=== PATIENT | female | born 1960 | race Caucasian/White ===

== ENCOUNTER 2020-01-10 00:27 | Day surgery (SDC) | payer OTHER, SELFPAY ==
[2020-01-04 14:14] VITALS: BMI 27.2
--- NOTE | 2020-01-09 17:37 | WPDANESEPP ---
Anes - Eval Pre Procedure Procedure: Operation Date: 01/10/20 07:30 Proposed Procedures p Screening Colonoscopy - Néstor King MD Date/Time: 01/09/20 17:37 Pre Op Diagnosis: Neoplasm screening Patient Data Age: 59 Gender: F Height: 1.63 m Weight: 72 kg Allergies Allergy/AdvReac Type Severity Reaction Status Date / Time BUPROPION HCL Allergy Mild Anxiety Uncoded 01/04/20 14:03 PROCAINE HCL Allergy Mild Unknown Uncoded 01/04/20 14:03 Home Medications Medication Instructions Recorded Confirmed Type atorvastatin 20 mg PO DAILY 01/04/20 01/04/20 History conjugated estrogens [Premarin] 1 applic TOPICAL DAILY 01/04/20 01/04/20 History lorazepam 1 mg PO TID PRN 01/04/20 01/04/20 History tramadol 50 mg PO DAILY 01/04/20 01/04/20 History varenicline [Chantix] 1 mg PO BID 01/04/20 01/04/20 History Patient hx anesthesia problems: post op nausea/vomiting Family hx anesthesia problems: none PMFSH Past Medical History Medical History (Updated 01/09/20 @ 17:40 by Flaquita Holt CRNA) Abnormal breast biopsy Arthritis GERD (gastroesophageal reflux disease) HLD (hyperlipidemia) Hypoglycemia Migraine Osteopenia Overweight Hriwx-Awkbdewtf-Xizas (WPW) syndrome Surgical History Surgical History (Updated 01/09/20 @ 17:40 by Flaquita Holt CRNA) H/O cardiac radiofrequency ablation H/O laparoscopy H/O tubal ligation Previous section Status post cystoscopy Exam Day of Procedure 01/09/20 17:37
[2020-01-10 06:35] VITALS: BP 129/79; PULSE 113; RESP 18; TEMP 36.5; O2SAT 98; BMI 26.5
--- NOTE | 2020-01-10 06:46 | WPDANESEFPP ---
Anes - Eval Final PreProcedure Day of Procedure 01/10/20 06:46 Patient weight: overweight Heart: regular rate and rhythm Lungs: clear to auscultation Airway: Mallampati scale class II Neurological: alert and oriented Last oral intake: >/= 8 hours ASA classification: III Emergent: no Anesthetic plan: proceed Anesthesia type and monitoring: general GIVS and standard monitoring Informed Consent: The patient's anesthetic plan and its attendant risks and benefits were discussed with the patient/family/POA. Questions were solicited and answers provided to the satisfaction of the patient/family/POA.
[2020-01-10] MEDS: LACTATED RINGERS 1,000 ML 150 ML IV CONT (06:50)
--- NOTE | 2020-01-10 07:04 | PM.HPGS ---
History of Present Illness History of Present Illness Consent: Risks, benefits, and alternatives have been discussed and questions answered. Patient agrees to proceed with procedure. Chief complaint: Neoplasm screening Narrative: Gaby Caldwell is a 59 year old female history of polyps [facility] Past Medical History Medical History Abnormal breast biopsy Arthritis GERD (gastroesophageal reflux disease) HLD (hyperlipidemia) Hypoglycemia Migraine Osteopenia Overweight Hbbvt-Moualcbke-Amxic (WPW) syndrome Surgical History Surgical History H/O cardiac radiofrequency ablation H/O laparoscopy H/O tubal ligation Previous section Status post cystoscopy Meds Home Medications and Allergies Home Medications Medication Instructions Recorded Confirmed Type atorvastatin 20 mg PO DAILY 01/04/20 01/10/20 History conjugated estrogens [Premarin] 1 applic TOPICAL DAILY 01/04/20 01/10/20 History lorazepam 1 mg PO TID PRN 01/04/20 01/10/20 History tramadol 50 mg PO DAILY 01/04/20 01/10/20 History varenicline [Chantix] 1 mg PO BID 01/04/20 01/10/20 History Allergies Allergy/AdvReac Type Severity Reaction Status Date / Time BUPROPION HCL Allergy Mild Anxiety Uncoded 01/10/20 06:34 PROCAINE HCL Allergy Mild Unknown Uncoded 01/10/20 06:34 Vital Signs Vital Signs - 24 hr 01/10/20 06:35 Temperature 36.5 C Pulse Rate 113 H Respiratory Rate 18 Blood Pressure 129/79 Pulse Oximetry 98 Exam Resp: Auscultation: clear to auscultation bilaterally Cardio: Rate: regular rate Rhythm: regular rhythm GI: GI Palp: Yes Soft to palpation and No Tenderness to palpation present (GI) Assessment and Plan Assessment and plan (1) Personal history of colonic polyps: Code(s): Z86.010 - Personal history of colonic polyps Status: Acute Assessment and Plan: Colonoscopy with possible biopsy or polypectomy or cautery or injection of substances.
[2020-01-10 07:47] VITALS: BP 112/68; PULSE 87; RESP 16; O2SAT 97
[2020-01-10 07:57] VITALS: BP 117/74; PULSE 83; RESP 17; O2SAT 97
[2020-01-10 08:09] VITALS: BP 136/89; PULSE 86; RESP 17; O2SAT 99
== END 2020-01-10 08:18 | disposition home or self-care (01) ==
PROVIDERS: PCP Family Medicine; Visit Provider Internal Medicine Gastroenterology
PROC: 0DJD8ZZ Inspection of Lower Intestinal Tract, Via Natural or Artificial Opening Endoscopic (ICD-10-PCS; CPT 45378; principal; 2020-01-10 07:30)
DX: Z12.11 Encounter for screening for malignant neoplasm of colon (principal); K62.1 Rectal polyp; K57.30 Diverticulosis of large intestine without perforation or abscess without bleeding; E78.5 Hyperlipidemia, unspecified; K21.9 Gastro-esophageal reflux disease without esophagitis; I45.6 Pre-excitation syndrome; M85.80 Other specified disorders of bone density and structure, unspecified site; M19.90 Unspecified osteoarthritis, unspecified site
CPT/HCPCS: 45380; 88305; J2704; J7120

== ENCOUNTER 2022-01-23 15:39 | Emergency (ER) | payer OTHER, SELFPAY ==
[2022-01-23] VITALS (9 sets, daily range): BP systolic 126–160; BP diastolic 84–89; PULSE 79–106; RESP 16–25; TEMP 36.8; O2SAT 97–99
--- NOTE | ~2022-01-23 | XR_ITS ---
EXAMINATION: XR chest 2V DATE: 01/23/2022 15:55 INDICATION: Chest pressure TECHNIQUE: PA and lateral views of the chest are obtained. COMPARISON: 06/07/2013 FINDINGS: The lungs are free of acute opacities. There is no pleural effusion or pneumothorax. The ca rdiomediastinal silhouette is normal. Small sternal suture wires are consistent with pediatric cardia c surgery. There is mild thoracic spondylosis. There is plate and screw fixation of a left proximal humerus fracture. IMPRESSION: 1. No acute cardiopulmonary abnormality. Reviewed, dictated and finalized at location [facility]
--- NOTE | 2022-01-23 15:45 | ECG_ITS ---
Measurements Intervals [place] Rate: 95 P: 64 SD: 130 QRS: 51 QRSD: 79 T: 71 QT: 333 QTc: 420 Interpretive Statements SINUS RHYTHM POSSIBLE LEFT ATRIAL ENLARGEMENT BORDERLINE ST-T WAVE ABNORMALITY- DIFFUSE LEADS BORDERLINE ECG Electronically Signed On 01-23-2022 15:58:50 [employer] by Faisal Martinez D.O.
--- NOTE | 2022-01-23 16:33 | ED.CHESTPAIN ---
HPI - Chest Pain General Chief Complaint: Chest Pain Stated Complaint: rapid heart rate, chest pressure Time Seen by Provider: 01/23/22 16:17 History of Present Illness HPI narrative: 61-year-old female with history of WPW and ablation status post 20 years ago reports to the emergency room with complaints of intermittent palpitations for the past 3 weeks. 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 Patient presents to the ER hoping to capture the suspected arrhythmia. Patient states when she has the palpitations they last anywhere from a couple seconds to several minutes. Palpitations can happen at rest or with activity. Denies syncope, chest pain, shortness of breath, nausea vomiting. Related Data Home Medications Medication Instructions Recorded Confirmed Chantix 1 mg PO BID 01/04/20 01/10/20 Premarin 1 applic TOPICAL DAILY 01/04/20 01/10/20 atorvastatin 20 mg PO DAILY 01/04/20 01/10/20 lorazepam 1 mg PO TID PRN 01/04/20 01/10/20 tramadol 50 mg PO DAILY 01/04/20 01/10/20 Allergies Allergy/AdvReac Type Severity Reaction Status Date / Time procaine Allergy Unknown Swelling Verified 01/23/22 16:12 BUPROPION HCL Allergy Mild Anxiety Uncoded 01/23/22 16:12 PROCAINE HCL Allergy Mild Unknown Uncoded 01/23/22 16:12 Review of Systems Review of Systems: CONSTITUTIONAL: Denies fever, chills, or sweats. EYES: Denies visual changes, redness, or discharge. ENT: Denies rhinorrhea, congestion, sore throat, or otalgia. CARDIOVASCULAR: Denies chest pain, edema. Per HPI, reports palpitations RESPIRATORY: Denies cough or dyspnea. GASTROINTESTINAL: Denies abdominal pain, nausea, vomiting, or diarrhea. GENITOURINARY: Denies dysuria or hematuria. SKIN: Denies rash or itching. MUSCULOSKELETAL: Denies back pain, joint pain, or myalgia. NEUROLOGIC: Denies headache, numbness, dizziness, or weakness. PSYCHIATRIC: Denies anxiety or depression. [facility] Past Medical History Medical History Abnormal breast biopsy Arthritis GERD (gastroesophageal reflux disease) HLD (hyperlipidemia) Hypoglycemia Migraine Osteopenia Overweight Tujnb-Tjhhzrgar-Mzpes (WPW) syndrome Surgical History Surgical History H/O cardiac radiofrequency ablation H/O laparoscopy H/O tubal ligation Previous section Status post cystoscopy Family History Family History Father Family history of chronic obstructive pulmonary disease Family history of congestive heart failure Mother Family history of malignant neoplasm of breast in first degree relative Social History Social History Alcohol intake: current Exam Narrative: GENERAL: Well-appearing, well-nourished, and in no acute distress. HEAD: Normocephalic, atraumatic. EYES: PERRLA and EOMI. ENT: Nares clear, no rhinorrhea or epistaxis. Mucous membranes moist. Oropharynx without tonsillar hypertrophy exudate or other lesions. Bilateral TMs pearly damian nonbulging NECK: Supple. No adenopathy or masses. No carotid bruits or JVD CHEST: Clear to auscultation. No respiratory distress. No wheezes rales or rhonchi HEART: Regular rate and rhythm. No murmur heard. Normal peripheral pulses. ABDOMEN: Soft, nontender, nondistended, normal active bowel sounds. EXTREMITIES: Normal range of motion. No edema. SKIN: Warm, dry, no rash. NEURO: No focal deficits. Alert and oriented x3. PSYCH: Normal mood and affect. Course Course Emergency Course: 61-year-old presented the emergency room with intermittent palpitations for the last couple weeks. Chest x-ray EKG within normal limits CBC CMP first troponin were all negative. Discussed with patient that felt comfortable sending her home as long as her palpitations were not persistent or long
[2022-01-23 16:44] LABS: Basophils Absolute Auto 0.1 K/mm3 (0.0-0.1); Basophils Percent Auto 0.7 % (0.2-1.2); Eosinophils Absolute Auto 0.3 K/mm3 (0-0.3); Eosinophils Percent Auto 1.9 % (0-4.4); Hematocrit 47.6 % (37.0-47.0); Hemoglobin 15.7 g/dL (12.0-15.0); Immature Granulocyte Absolute 0.04 K/mm3 (0.00-0.031); Immature Granulocyte Percent A 0.3 % (0-0.5); Lymphocytes Absolute Auto 3.63 K/mm3 (0.9-3.2); Lymphocytes Percent Auto 27.2 % (18.3-44.2); Mean Corpuscular Hemoglobin 28.9 pg (26-34); Mean Corpuscular Volume 87.7 fl (80-100); Mean Platelet Volume 9.8 fl (7.4-10.4); Monocytes Absolute Auto 0.7 K/mm3 (0.1-0.6); Monocytes Percent Auto 4.9 % (2.6-8.5); Neutrophils Absolute Auto 8.7 K/mm3 (1.3-6.7); Platelet Count Result 309 k/mm3 (150-375); Red Blood Count 5.43 M/mm3 (4.2-5.4); Red Cell Distribution Width 13.9 % (11.5-14.5); White Blood Count 13.3 K/mm3 (4.5-10.0)
[2022-01-23 16:56] LABS: Partial Thromboplastin Time 30.7 SECONDS (22.3-36.8); Prothrombin Time 12.9 Seconds (11.1-14.7)
[2022-01-23 16:57] LABS: Alanine Aminotransferase 19 U/L (4-35); Albumin Level 4.3 g/dL (3.5-5.1); Alkaline Phosphatase 85 U/L (38-126); Anion Gap 9 mmol/L (8-16); Aspartate Amino Transferase 24 U/L (14-36); Bilirubin,Total 0.6 mg/dL (0.2-1.3); Blood Urea Nitrogen 20 mg/dL (7-17); Calcium 9.1 mg/dL (8.4-10.2); Carbon Dioxide 24 mmol/L (22-30); Chloride 105 mmol/L (98-107); Estimated CRCL calculation 68 ml/min; Estimated Glomerular Filt Rate > 60; Glucose 96 mg/dL (65-110); Lipase 53 U/L (23-300); Potassium 4.2 mmol/L (3.4-5.0); Sodium 138 mmol/L (137-145)
[2022-01-23 17:09] LABS: Troponin I < 0.012 ng/mL (0.000-0.034)
[2022-01-23 17:18] LABS: D Dimer 0.55 ug/mL (<0.48)
== END 2022-01-23 17:25 | disposition home or self-care (01) ==
PROVIDERS: Emergency Medicine; Emergency Provider Nurse Practitioner Family; PCP Family Medicine
DX: R00.2 Palpitations (principal); E78.5 Hyperlipidemia, unspecified; M85.80 Other specified disorders of bone density and structure, unspecified site; K21.9 Gastro-esophageal reflux disease without esophagitis; M19.90 Unspecified osteoarthritis, unspecified site; E66.3 Overweight; Z68.27 Body mass index [BMI] 27.0-27.9, adult; R94.31 Abnormal electrocardiogram [ECG] [EKG]; R07.89 Other chest pain
CPT/HCPCS: 36415; 71046; 80053; 83690; 84484; 85025; 85380; 85610; 85730; 93005; 99284

== ENCOUNTER 2022-05-09 15:42 | Emergency (ER) | payer OTHER, SELFPAY ==
[2022-05-09 15:50] VITALS: BP 142/73; PULSE 93; RESP 18; TEMP 36.4; O2SAT 97
--- NOTE | 2022-05-09 16:29 | ED.GENADULT ---
HPI - General Adult General Chief complaint: Urogenital-Female Stated complaint: uti complaint Time Seen by Provider: 05/09/22 16:15 History of Present Illness HPI narrative: 61-year-old female patient presents to the [facility] with complaints of urinary symptoms for the past 2 days. Patient states she has had a sense of urgency, burning with some abdominal pressure. Denies any fevers, body aches or chills. Denies any lower back pain. Denies any nausea, vomiting or diarrhea. Patient states she has had urinary tract infections in the past felt very similar. Related Data Home Medications Medication Instructions Recorded Confirmed atorvastatin 20 mg tablet 20 mg PO DAILY 01/04/20 05/09/22 tramadol 50 mg tablet 50 mg PO DAILY 01/04/20 05/09/22 diazepam 2 mg tablet 1 tablet DIRECTED 05/09/22 05/09/22 metoprolol tartrate 25 mg tablet 25 tablet BID 05/09/22 05/09/22 Allergies Allergy/AdvReac Type Severity Reaction Status Date / Time procaine Allergy Unknown Swelling Verified 05/09/22 15:57 BUPROPION HCL Allergy Mild Anxiety Uncoded 05/09/22 15:57 PROCAINE HCL Allergy Mild Unknown Uncoded 05/09/22 15:57 Review of Systems Review of Systems: CONSTITUTIONAL: Denies fever, chills, or sweats. EYES: Denies visual changes, redness, or discharge. ENT: Denies rhinorrhea, congestion, sore throat, or otalgia. CARDIOVASCULAR: Denies chest pain, palpitations, or edema. RESPIRATORY: Denies cough or dyspnea. GASTROINTESTINAL: Positive lower abdominal pain, denies nausea, vomiting, or diarrhea. GENITOURINARY: Positive dysuria or hematuria. SKIN: Denies rash or itching. MUSCULOSKELETAL: Denies back pain, joint pain, or myalgia. NEUROLOGIC: Denies headache, numbness, or weakness. PSYCHIATRIC: Denies anxiety or depression. [facility] Past Medical History Medical History Abnormal breast biopsy Arthritis GERD (gastroesophageal reflux disease) HLD (hyperlipidemia) Hypoglycemia Migraine Osteopenia Overweight Wsbgd-Cgqjsbvuw-Gqero (WPW) syndrome Surgical History Surgical History H/O cardiac radiofrequency ablation H/O laparoscopy H/O tubal ligation Previous section Status post cystoscopy Family History Family History Father Family history of chronic obstructive pulmonary disease Family history of congestive heart failure Mother Family history of malignant neoplasm of breast in first degree relative Social History Social History Alcohol intake: current Comments At the time of my signature I agree with nursing past medical history, surgical, social, and family history. There is no relevant family history pertinent to the presenting complaint. Exam Narrative: GENERAL: Well-appearing, well-nourished, and in no acute distress. HEAD: Normocephalic, atraumatic. EYES: PERRLA and EOMI. ENT: Nares clear, no rhinorrhea or epistaxis. Mucous membranes moist. NECK: Supple. No lymphadenopathy CHEST: Clear to auscultation. No respiratory distress. HEART: Regular rate and rhythm. No murmur heard. Normal peripheral pulses. ABDOMEN: Soft, nontender, nondistended, normal active bowel sounds. No CVA tenderness on percussion. EXTREMITIES: Normal range of motion. No edema. SKIN: Warm, dry, no rash. NEURO: No focal deficits. Alert and oriented x3. Course Course Level of Care: Express Care Visit Vital Signs Vital signs: Vital Signs Temperature 36.4 C 05/09/22 15:50 Pulse Rate 93 05/09/22 15:50 Respiratory Rate 18 05/09/22 15:50 Blood Pressure 142/73 H 05/09/22 15:50 Pulse Oximetry 97 05/09/22 15:50 Oxygen Delivery Room Air 05/09/22 15:50 Temperature 36.4 C 05/09/22 15:50 Pulse Rate 93 05/09/22 15:50 Respiratory Rate 18 05/09/22 15:50 Blood Pressure 142/73 H 05/09/22 15:50 Pul
== END 2022-05-09 16:39 | disposition home or self-care (01) ==
PROVIDERS: Emergency Provider Nurse Practitioner Family; PCP Family Medicine
DX: R31.9 Hematuria, unspecified (principal); R30.0 Dysuria; M19.90 Unspecified osteoarthritis, unspecified site; K21.9 Gastro-esophageal reflux disease without esophagitis; E78.5 Hyperlipidemia, unspecified; I45.6 Pre-excitation syndrome; M85.80 Other specified disorders of bone density and structure, unspecified site
CPT/HCPCS: 81003; 87086; 99213; G0463

== ENCOUNTER 2023-09-17 01:16 | Day surgery (SDC) | payer OTHER, SELFPAY ==
[2023-09-06 15:38] VITALS: BMI 28.3
--- NOTE | 2023-09-16 13:20 | P.HP_ITS ---
History of Present Illness History of Present Illness Consent: Risks, benefits, and alternatives have been discussed and questions answered. Patient agrees to proceed with procedure. Chief complaint: LLQ pain, diverticulitis w/o perf. or abscess Narrative: Gaby Caldwell is a 63 year old female referred because of recurrent episodes of what seems to be diverticulitis. Review of Systems Review of Systems: All systems reviewed & are unremarkable except as noted in HPI and below PMFSH Past Medical History Medical History Abnormal breast biopsy Arthritis Diverticulitis GERD (gastroesophageal reflux disease) HLD (hyperlipidemia) Hypoglycemia Migraine Osteopenia Overweight Oaiqw-Xvwmheaqr-Avsoq (WPW) syndrome Surgical History Surgical History H/O cardiac radiofrequency ablation H/O laparoscopy H/O tubal ligation Previous section Status post cystoscopy Family History Family History Father Family history of chronic obstructive pulmonary disease Family history of congestive heart failure Mother Family history of malignant neoplasm of breast in first degree relative Social History Social History Smoking packs per day: 1 Smoking cigarettes per day: 20.0 Years smoked: 35 Smoking pack-years: 35.00 Smoking status: Current every day smoker Tobacco type: cigarettes Alcohol intake: current Alcohol use details: occasional Substance use: never Substance use type: does not use Living arrangements: with family Spiritual care concerns: No Meds Home Medications and Allergies Home Medications Medication Instructions Recorded Confirmed Type atorvastatin 20 mg tablet 20 mg PO DAILY 01/04/20 09/06/23 History tramadol 50 mg tablet 50 mg PO DAILY PRN Pain 01/04/20 09/06/23 History metoprolol succinate 50 mg 50 mg PO DAILY 09/06/23 09/06/23 History tablet,extended release 24 hr Allergies Allergy/AdvReac Type Severity Reaction Status Date / Time procaine Allergy Unknown Swelling Verified 09/17/23 08:11 BUPROPION HCL Allergy Mild Anxiety Uncoded 09/17/23 08:11 PROCAINE HCL Allergy Mild Unknown Uncoded 09/17/23 08:11 Exam 2 Const: General: alert Orientation/consciousness: patient oriented x3 Resp: Auscultation: clear to auscultation bilaterally Cardio: Rhythm: regular rhythm GI: GI Palp: Yes Soft to palpation and No Tenderness to palpation present (GI) Neuro: General: patient oriented x3 Assessment and Plan Assessment and plan (1) Diverticulitis: Code(s): K57.92 - Diverticulitis of intestine, part unspecified, without perforation or abscess without bleeding Status: Acute Assessment and Plan: Colonoscopy with possible biopsy or polypectomy or cautery or injection of substances.
[2023-09-17 08:12] VITALS: BP 143/84; PULSE 109; RESP 18; TEMP 35.9; O2SAT 99
[2023-09-17] MEDS: LACTATED RINGERS 1,000 ML 150 ML IV CONT (08:18)
--- NOTE | 2023-09-17 08:44 | WPDANESEPPF ---
Anes - Initial Pre Proc Eval Procedure: Operation Date: 09/17/23 09:00 Proposed Procedures p Colonoscopy - Néstor King MD Date/Time: 09/17/23 08:44 Surgeon: Néstor King MD Pre Op Diagnosis: LLQ pain, diverticulitis w/o perf. or abscess Patient Data Age: 63 Gender: F Height: 1.6 m Weight: 73.7 kg Last Vital Signs Temp 96.7 F L 09/17/23 08:12 Pulse 109 H 09/17/23 08:12 Resp 18 09/17/23 08:12 BP 143/84 H 09/17/23 08:12 Pulse Ox 99 09/17/23 08:12 O2 Del Method Room Air 09/17/23 08:12 Allergies Allergy/AdvReac Type Severity Reaction Status Date / Time procaine Allergy Unknown Swelling Verified 09/17/23 08:11 BUPROPION HCL Allergy Mild Anxiety Uncoded 09/17/23 08:11 PROCAINE HCL Allergy Mild Unknown Uncoded 09/17/23 08:11 Home Medications Medication Instructions Recorded Confirmed Type atorvastatin 20 mg tablet 20 mg PO DAILY 01/04/20 09/06/23 History tramadol 50 mg tablet 50 mg PO DAILY PRN Pain 01/04/20 09/06/23 History metoprolol succinate 50 mg 50 mg PO DAILY 09/06/23 09/06/23 History tablet,extended release 24 hr Patient hx anesthesia problems: none Family hx anesthesia problems: none Results Review: All pre-operative results and documents have been reviewed as part of the pre-operative evaluation. [facility] Past Medical History Medical History Abnormal breast biopsy Arthritis Diverticulitis GERD (gastroesophageal reflux disease) HLD (hyperlipidemia) Hypoglycemia Migraine Osteopenia Overweight Cfbyl-Eartrgfxb-Oefjj (WPW) syndrome Surgical History Surgical History H/O cardiac radiofrequency ablation H/O laparoscopy H/O tubal ligation Previous section Status post cystoscopy Family History Family History Father Family history of chronic obstructive pulmonary disease Family history of congestive heart failure Mother Family history of malignant neoplasm of breast in first degree relative Social History Social History Smoking packs per day: 1 Smoking cigarettes per day: 20.0 Years smoked: 35 Smoking pack-years: 35.00 Smoking status: Current every day smoker Tobacco type: cigarettes Alcohol intake: current Alcohol use details: occasional Substance use: never Substance use type: does not use Living arrangements: with family Spiritual care concerns: No Anes - Eval Final PreProcedure Day of Procedure 09/17/23 08:44 Patient weight: normal Heart: regular rate and rhythm Lungs: clear to auscultation Airway: Mallampati scale class II Neurological: alert and oriented Last oral intake: >/= 8 hours ASA classification: III Emergent: no Anesthetic plan: proceed Anesthesia type and monitoring: general GIVS and standard monitoring Results Review: All pre-operative results and documents have been reviewed as part of the pre-operative evaluation. Informed Consent: The patient's anesthetic plan and its attendant risks and benefits were discussed with the patient/family/POA. Questions were solicited and answers provided to the satisfaction of the patient/family/POA.
[2023-09-17 09:28] VITALS: BP 126/76; PULSE 95; RESP 23; O2SAT 96
[2023-09-17 09:38] VITALS: BP 125/80; PULSE 89; RESP 19; O2SAT 97
[2023-09-17 09:48] VITALS: BP 127/78; PULSE 85; RESP 19; O2SAT 98
== END 2023-09-17 09:52 | disposition home or self-care (01) ==
PROVIDERS: PCP Family Medicine; Visit Provider Internal Medicine Gastroenterology
PROC: 0DJD8ZZ Inspection of Lower Intestinal Tract, Via Natural or Artificial Opening Endoscopic (ICD-10-PCS; CPT 45378; principal; 2023-09-17 09:00)
DX: K57.30 Diverticulosis of large intestine without perforation or abscess without bleeding (principal); K64.8 Other hemorrhoids; D12.4 Benign neoplasm of descending colon; K21.9 Gastro-esophageal reflux disease without esophagitis; E78.5 Hyperlipidemia, unspecified; I45.6 Pre-excitation syndrome; F17.210 Nicotine dependence, cigarettes, uncomplicated
CPT/HCPCS: 45385; 88305; J2704; J7120